=== PATIENT | male | born 1950 | race Caucasian/White ===

== ENCOUNTER 2016-05-25 19:49 | Emergency (ER) | payer MEDICARE, OTHER ==
[2016-05-25] MEDS ORDERED: Sodium Chloride 0.9% 10 ML Syringe FLUSH PRN (19:52)
[2016-05-25 20:57] VITALS: BP 136/86
[2016-05-25 21:00] LABS: CHLORIDE,CL 107 mmol/L (98-107); SODIUM,NA 143 mmol/L (136-145)
[2016-05-25] MEDS ORDERED: Azithromycin 250 MG Tab PO ONE (21:13)
[2016-05-25] MEDS ORDERED: predniSONE 20 MG Tab PO ONE (21:14)
--- NOTE | 2016-05-25 22:31 | ER ---
Date of Service: 05/25/2016 SUBJECTIVE: Efrain presents to the emergency room with complaints of left anterior upper chest pain. He states that he was sitting down and watching TV at the onset of the symptoms. He states that there was no radiation to his jaw, arms, neck or back. He states that he does have a history of coronary artery disease and does have 1 stent. He did not become diaphoretic with these symptoms. He states that he also has recently had a "cold" and does have a history of COPD. PAST MEDICAL HISTORY: 1. Coronary artery disease. 2. Dyslipidemia. 3. Recurrent pneumonia. 4. COPD. 5. Hypertension. MEDICATIONS: 1. Lipitor 10 mg at bedtime. 2. Aspirin 325 mg daily. 3. Metoprolol succinate 25 mg once every 24 hours. REVIEW OF SYSTEMS: General: Denies any fever or chills. HEENT: No sore throat, rhinorrhea, or congestion. Respiratory: No shortness breath. Cardiac: Denies any substernal chest pain. No jaw, arm, neck, or back pain. Again he does have left anterior upper respirophasic chest pain. He denies any hemoptysis. No productive cough. Respiratory: No shortness of breath. Gastrointestinal: No nausea, vomiting, or diarrhea. No melena, hematochezia, or hematemesis. : Denies any dysuria. Musculoskeletal: No myalgias or arthralgias. Neurologic: No fainting, blackouts, lightheadedness. PHYSICAL EXAMINATION: General: This is a 65-year-old male patient. No acute distress. Vital Signs: Temperature 37.3, pulse rate is 68, blood pressure is 138/87, respiratory rate 18, O2 saturations 96%. Skin: Warm, pink, and dry. HEENT: Head is normocephalic, atraumatic. Eyes, PERRLA. Extraocular movements are intact. Mouth, oral mucosa is moist. Lungs: Diminished with mild wheezing throughout. Heart: Regular rate and rhythm. Abdomen: Soft, nontender. There is no hepatosplenomegaly noted. There is no masses noted. Extremities: Without edema. Neurologic: He is alert and oriented. Answers all questions appropriately. DIAGNOSTIC DATA: A 12-lead EKG shows a right bundle-branch block, which was unchanged from previous. Two-view chest x-ray was obtained, there was no evidence of any acute infiltrate. Hematology: WBCs 6.2, hemoglobin is 15.0, platelets are 221. Coags; PT is 9.9, INR is 0.9. Sodium is 143, potassium is 4.1, chloride is 107, bicarb is 28, BUN is 7, creatinine 0.8. GFR is greater than 60. Glucose is 94, calcium is 8.9, corrected calcium is 8.6, total bilirubin is 0.5, AST is 12, ALT is 28, alkaline phosphatase is 54. CK is 57, CK-MB is 0.8. Troponin of 0.01. Total protein is 7.5, albumin is 4.3, TSH is 1.863. EMERGENCY ROOM COURSE: The patient had been given aspirin pre-hospital. He did not receive any nitroglycerin or other medication for his chest pain and it resolved prior to arrival of EMS and he had no further discomfort during his stay in the emergency room. He remained stable in my care in the emergency room. ASSESSMENT: 1. Atypical chest pain. 2. Probable chronic obstructive pulmonary disease exacerbation. PLAN: The patient was started on azithromycin 500 mg x1 and then 250 mg on days 2 through 5. We will start him on prednisone 40 mg daily for 5 days. Follow up in the clinic in 10 to 14 days. Refer to the emergency room, if he develops significant substernal chest pain, shortness of breath or other worrisome signs or symptoms. All questions were answered. MWK: 05/25/2016 21:41:51 MODL: 05/25/2016 22:25:24 /[id number]
== END 2016-05-25 21:25 | disposition home or self-care (01) ==
LOC: VM.ED 19:49
DX: R07.89 Other chest pain (principal); I25.10 Atherosclerotic heart disease of native coronary artery without angina pectoris; E78.5 Hyperlipidemia, unspecified; I10 Essential (primary) hypertension; J44.9 Chronic obstructive pulmonary disease, unspecified; Z79.899 Other long term (current) drug therapy
CPT/HCPCS: 71020; 80053; 82550; 82553; 84443; 84484; 85025; 85610; 86140; 93005; 99285; A9270; 36415; 99283-GF

== ENCOUNTER 2018-06-01 03:09 | Emergency (ER) | payer MEDICARE, OTHER ==
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
[2018-06-01] MEDS ORDERED: Nitroglycerin 0.4 MG Tab.SL SL ONE (03:23)
[2018-06-01 04:36] LABS: CHLORIDE,CL 107 mmol/L (98-107); SODIUM,NA 143 mmol/L (136-145)
[2018-06-01 04:37] LABS: ANION GAP 16.1 mmol/L (10-20)
[2018-06-01] MEDS ORDERED: Sodium Chloride 0.9% 10 ML Syringe FLUSH PRN (04:44)
[2018-06-01] MEDS ORDERED: Heparin Sodium 5,000 Units/ML Vial IVPUSH ONE (04:44)
[2018-06-01] MEDS ORDERED: Heparin Sodium/0.45% NaCl 25,000 UNITS/500 ML BAG IV SCH ×2 (04:45→05:07)
[2018-06-01 09:45] VITALS: BP 142/78
== END 2018-06-01 09:40 | disposition short-term general hospital (02) ==
LOC: VM.ED 03:09
DX: I21.4 Non-ST elevation (NSTEMI) myocardial infarction (principal); I10 Essential (primary) hypertension; I25.2 Old myocardial infarction; Z79.82 Long term (current) use of aspirin
CPT/HCPCS: 36415; 80053; 83735; 83880; 84100; 84484; 85025; 85610; 86140; 93005; 93010; 96365; 96366; 99284; 99285; J1644

== ENCOUNTER 2018-12-05 21:44 | Emergency (ER) | payer MEDICARE, OTHER ==
--- NOTE | 2018-12-05 22:01 | EDM.PDOC ---
ED HPI GENERAL MEDICAL PROBLEM - General Stated Complaint: CHEST PAIN Time Seen by Provider: 12/05/18 21:46 Source of Information: Reports: Patient, EMS, RN Notes Reviewed History Limitations: Reports: No Limitations - History of Present Illness INITIAL COMMENTS - FREE TEXT/NARRATIVE: Pt. presents to ER with complaints of intermittent L sided chest pain. Pt. states that he has been experiencing this intermittently throughout the day today. He states that the discomfort has been resolving in its own. He states that tonight, he developed the pain again. He took a sublingual nitroglycerine and states that the discomfort again resolved. EMS was summoned. Pt. has a history of CAD, and has had previous angioplasty and stenting. He states that he is no more short of breath than normal. Denies any shortness of breath. No recent coughing. Pt. denies any radiation into his jaw, arms, neck or back. It is located to the L of upper pectoral area. Pt. was seen in our ER in May of this year with L arm pain in our facility. He was diagnosed with NSTEMI at that time (trop I was elevated, there was no acute ST change). He was transferred to [place], underwent PTCA, and was found to have no abnormality at that time according to his discharge summary, but according to his cath report, he had the following: Left main artery: The segment is large. Angiography shows no disease. Left Anterior Descending Left anterior descending artery: The segment is large. Angiography shows luminal irregularites. First diagonal: The segment is moderately sized. There is a 60 % stenosis in the mid portion of the segment. Circumflex Circumflex artery: The segment is large. Mid circumflex: There is a 40 % in- stent restenosis. First obtuse marginal: The segment is moderately sized. Angiography shows no disease. Second obtuse marginal: The segment is small. Angiography shows no disease. Right Coronary Right coronary artery: The segment is large. Angiography shows diffuse disease. Proximal right coronary artery: There is an 80 % stenosis. This is a diffuse lesion. Mid right coronary artery: There is a 100 % stenosis. Right posterior descending artery: The segment is moderately sized. The vessel segment is supplied by collaterals. Since then, he has been on high-dose statin, beta-jhonathan, plavix, imdur and lisinopril. It does not appear that there was any intervention done at that time. Pt. states that with prior coronary events, he had L arm pain, and denies any previous chest pain. Onset: Today Onset Date: 12/05/18 Location: Reports: Chest Quality: Reports: Ache Associated Symptoms: Reports: Chest Pain. Denies: Cough, cough w sputum, Diaphoresis, Fever/Chills, Shortness of Breath Treatments WINDOWS ARCHITECT: Reports: Aspirin, IV/IO, Nitroglycerin - Related Data Allergies Allergy/AdvReac Type Severity Reaction Status Date / Time No Known Drug Allergies Allergy Other Verified 12/05/18 21:59 Home Meds: Home Meds Aspirin 325 mg PO DAILY 10/02/13 [History] Nitroglycerin 0.3 mg SL ASDIRECTED PRN 11/21/16 [History] Past Medical History HEENT History: Reports: Hard of Hearing, Impaired Vision Cardiovascular History: Reports: High Cholesterol, Hypertension, [place], Stents Other Cardiovascular History: x3 [place] Respiratory History: Reports: Bronchitis, Recurrent, Pneumonia, Recurrent - Past Surgical History Cardiovascular Surgical History: Reports: Coronary Artery Stent Social & Family History - Family History Family Medical History: Noncontributory Cardiac: Reports: Other (See Below) Other Cardiac Family History: Father of an NV Respiratory: Reports: None GI: Reports: None Musculoskeletal: Reports: None Neurological: Reports: None Psychiatric: Reports: None Endocrine/Metabolic: Reports: None Hematologic: Reports: None Immunologic: Reports: None Dermatologic: Reports: None Oncologic: Reports: Other (See Below) Other Oncologic Family History: sister from cancer, unsure of what kind - Caffeine Use Caffeine Use: Reports: Coffee Caffeine Use Comment: 1 pot of coffee per day ED ROS GENERAL - Review of Systems Review Of Systems: See Below Constitutional: Reports: No Symptoms. Denies: Fever, Chills, Weakness, Diaphoresis, Decreased Appetite HEENT: Reports: No Symptoms Respiratory: Reports: No Symptoms Cardiovascular: Reports: Chest Pain. Denies: Dyspnea on Exertion, Edema, Lightheadedness, Palpitations Endocrine: Reports: No Symptoms GI/Abdominal: Reports: No Symptoms : Reports: No Symptoms Musculoskeletal: Reports: No Symptoms Skin: Reports: No Symptoms Neurological: Reports: No Symptoms. Denies: Confusion, Dizziness, Numbness, Syncope, Tingling, Weakness Psychiatric: Reports: No Symptoms Hematologic/Lymphatic: Reports: No Symptoms Immunologic: Reports: No Symptoms ED EXAM, GENERAL - Physical Exam Exam: See Below Exam Limited By: No Limitations General Appearance: Alert, WD/WN, No Apparent Distress Eye Exam: Bilateral Eye: EOMI, PERRL Throat/Mouth: Normal Inspection, Normal Lips, Normal Teeth, Normal Gums, Normal Oropharynx, Normal Voice, No Airway Compromise Head: Atraumatic, Normocephalic Neck: Normal Inspection, Supple, Non-Tender, Full Range of Motion Respiratory/Chest: No Respiratory Distress, Lungs Clear, Normal Breath Sounds, No Accessory Muscle Use, Chest Non-Tender Cardiovascular: Normal Peripheral Pulses, Regular Rate, Rhythm, No Edema, No Gallop, No JVD, No Murmur, No Rub Peripheral Pulses: 4+: Radial (R) GI/Abdominal: Normal Bowel Sounds, Soft, Non-Tender, No Organomegaly, No Distention, No Abnormal Bruit, No Mass (Male) Exam: Deferred Rectal (Males) Exam: Deferred Back Exam: Normal Inspection, Full Range of Motion Extremities: Normal Inspection, Normal Range of Motion, Non-Tender, No Pedal Edema, Normal Capillary Refill Neurological: Alert, Oriented, CN II-XII Intact, No Motor/Sensory Deficits Psychiatric: Normal Affect, Normal Mood Skin Exam: Warm, Dry, Intact, Normal Color Lymphatic: No Adenopathy EKG INTERPRETATION Rhythm: NSR Mercer: Normal P-Wave: Present QRS: RBBB ST-T: Normal QT: Normal Comparison: Change From Previous EKG Course - Vital Signs Last Recorded V/S: Last Vital Signs Temp 36.8 C 12/05/18 22:16 Pulse 71 12/05/18 22:16 Resp 14 12/05/18 22:16 BP 156/82 H 12/05/18 22:16 Pulse Ox 98 12/05/18 22:16 - Orders/Labs/Meds Orders: Active Orders 24 hr Category Date Time Status EKG Documentation Completion [RC] STAT Care 12/05/18 21:51 Active Chest 1V Frontal [CR] Stat Exams 12/05/18 21:51 Taken CBC W/O DIFF,HEMOGRAM [HEME] Q3D Lab 12/06/18 07:00 Ordered CBC W/O DIFF,HEMOGRAM [HEME] Q3D Lab 12/09/18 07:00 Ordered CBC W/O DIFF,HEMOGRAM [HEME] Q3D Lab 12/12/18 07:00 Ordered CBC W/O DIFF,HEMOGRAM [HEME] Q3D Lab 12/15/18 07:00 Ordered CBC W/O DIFF,HEMOGRAM [HEME] Q3D Lab 12/18/18 07:00 Ordered CBC W/O DIFF,HEMOGRAM [HEME] Q3D Lab 12/21/18 07:00 Ordered CBC W/O DIFF,HEMOGRAM [HEME] Q3D Lab 12/24/18 07:00 Ordered Heparin Sodium/0.45% NaCl [Heparin 25,000 Units in 1/2 Med 12/05/18 23:00 Ordered NS 500 ML] 25,000 units in 500 ml IV TITRATE Medication Orders Heparin Sodium/Sodium Chloride (Heparin 25,000 Units In 1/2 Ns 500 Ml) 25,000 units in 500 mls @ 20 mls/hr IV TITRATE SANIYA; Protocol Labs: Laboratory Tests 12/05/18 12/05/18 12/05/18 Range/Units 21:55 21:55 21:55 WBC 7.2 (4.0-10.0) x10^3/uL RBC 4.64 (4.5-6.0) x10^6/uL Hgb 15.2 (14.0-18.0) g/dL Hct 43.7 (40.0-52.0) % MCV 94.2 H (78.0-93.0) fL MCH 32.8 H (26.0-32.0) pg MCHC 34.8 (32.0-36.0) g/dL RDW Coeff of [place] 13.7 (10.0-15.0) % Plt Count 185 (130-400) x10^3/uL Neut % (Auto) 73.8 (50.0-80.0) % Lymph % (Auto) 14.9 L (25.0-50.0) % [place] % (Auto) 7.4 (2.0-11.0) % Eos % (Auto) 3.8 (0.0-4.0) % Baso % (Auto) 0.1 L (0.2-1.2) % PT 10.3 (10.0-12.8) SEC INR 0.9 L (2.0-3.5) Sodium 145 (136-145) mmol/L Potassium 4.1 (3.5-5.1) mmol/L Chloride 106 (98-107) mmol/L Carbon Dioxide 27 (21-32) mmol/L Anion Gap 16.1 (10-20) mmol/L BUN 11 (7-18) mg/dL Creatinine 0.9 (0.70-1.30) mg/dL Est Cr Clr Drug Dosing 82.50 mL/min Estimated GFR (MDRD) > 60 Glucose 103 (74-106) mg/dL Calcium 8.6 (8.5-10.1) mg/dL Corrected Calcium 8.84 (8.5-10.1) mg/dL Phosphorus 3.5 (2.6-4.7) mg/dL Magnesium 1.9 (1.8-2.4) mg/dL Total Bilirubin 0.5 (0.2-1.0) mg/dL AST 17 (15-37) U/L ALT 35 (16-63) U/L Alkaline Phosphatase 58 (46-116) U/L Troponin I 0.109 H* (<=0.056) ng/mL C-Reactive Protein < 0.2 (<=0.9) mg/dL Total Protein 7.0 (6.4-8.2) g/dL Albumin 3.7 (3.4-5.0) g/dL Globulin 3.3 Albumin/Globulin Ratio 1.12 Meds: Medications Generic Name Dose Route Start Last Admin Trade Name Freq PRN Reason Stop Dose Admin Heparin Sodium/Sodium Chloride 25,000 units in 500 mls @ 20 mls/hr 12/05/18 23 :00 Heparin 25,000 Units In 1/2 Ns 500 Ml IV TITRATE SANIYA Protocol 1,000 UNITS/HR Discontinued Medications Generic Name Dose Route Start Last Admin Trade Name Freq PRN Reason Stop Dose Admin Heparin Sodium (Porcine) 4,000 units 12/05/18 22:46 Heparin Sodium IVPUSH 12/05/18 22:47 .BOLUS ONE - Re-Assessments/Exams Free Text/Narrative Re-Assessment/Exam: 12/05/18 22:52 Troponin positive at 0.109. Pt. was given heparin 4000U bolus and started on a heparin drip at 1000U/hr. He was pain free during his stay in ER. He only took 1 nitro prior to arrival or EMS. He was given aspirin 324mg PO by EMS. Departure - Departure Time of Disposition: 22:54 Disposition: DC/Tfer to Acute Hospital 02 Condition: Critical Clinical Impression: NSTEMI (non-ST elevated myocardial infarction), Acute myocardial infarction - Discharge Information Referrals: Lamar Moses MD [Primary Care Provider] - - Problem List Review Problem List Initiated/Reviewed/Updated: Yes - My Orders Last 24 Hours: My Active Orders 12/05/18 21:51 EKG Documentation Completion [RC] STAT Chest 1V Frontal [CR] Stat 12/05/18 23:00 Heparin Sodium/0.45% NaCl [Heparin 25,000 Units in 1/2 NS 500 ML] 25,000 units in 500 ml IV TITRATE 12/06/18 07:00 CBC W/O DIFF,HEMOGRAM [HEME] Q3D 12/09/18 07:00 CBC W/O DIFF,HEMOGRAM [HEME] Q3D 12/12/18 07:00 CBC W/O DIFF,HEMOGRAM [HEME] Q3D 12/15/18 07:00 CBC W/O DIFF,HEMOGRAM [HEME] Q3D 12/18/18 07:00 CBC W/O DIFF,HEMOGRAM [HEME] Q3D 12/21/18 07:00 CBC W/O DIFF,HEMOGRAM [HEME] Q3D 12/24/18 07:00 CBC W/O DIFF,HEMOGRAM [HEME] Q3D - Assessment/Plan Last 24 Hours: My Active Orders 12/05/18 21:51 EKG Documentation Completion [RC] STAT Chest 1V Frontal [CR] Stat 12/05/18 23:00 Heparin Sodium/0.45% NaCl [Heparin 25,000 Units in 1/2 NS 500 ML] 25,000 units in 500 ml IV TITRATE 12/06/18 07:00 CBC W/O DIFF,HEMOGRAM [HEME] Q3D 12/09/18 07:00 CBC W/O DIFF,HEMOGRAM [HEME] Q3D 12/12/18 07:00 CBC W/O DIFF,HEMOGRAM [HEME] Q3D 12/15/18 07:00 CBC W/O DIFF,HEMOGRAM [HEME] Q3D 12/18/18 07:00 CBC W/O DIFF,HEMOGRAM [HEME] Q3D 12/21/18 07:00 CBC W/O DIFF,HEMOGRAM [HEME] Q3D 12/24/18 07:00 CBC W/O DIFF,HEMOGRAM [HEME] Q3D Plan: Pt. will be transferred to [facility]. I spoke with Dr. Maynard. He accepts the patient in transfer. He was heparinized. He will be transferred via [facility] ground ambulance. Pt. family was notified. All questions were answered.
[2018-12-05 22:37] LABS: ANION GAP 16.1 mmol/L (10-20); CHLORIDE,CL 106 mmol/L (98-107); SODIUM,NA 145 mmol/L (136-145)
[2018-12-05] MEDS ORDERED: Heparin Sodium 5,000 Units/ML Vial IVPUSH ONE (22:46)
[2018-12-05] MEDS ORDERED: Heparin Sodium/0.45% NaCl 25,000 UNITS/500 ML BAG IV SCH (23:00)
--- NOTE | 2018-12-06 08:16 | CR ---
[id number] RAD/RAD Chest PA or AP 1V EXAM: SINGLE VIEW CHEST. INDICATION: CHEST PAIN COMPARISON: CORRELATION IS MADE WITH THE EXAM OF MAY 25, 2016 FINDINGS: The lungs are clear but hyperaerated The cardiomediastinal contour is stable IMPRESSION: QUESTION OF AIR TRAPPING Jr Gaming MD 12/06/18 0815 Thank you for allowing us to participate in the care of your patient.
[2018-12-06 09:33] VITALS: BP 139/83; PULSE 76
== END 2018-12-05 23:21 | disposition short-term general hospital (02) ==
LOC: VM.ED 21:44
DX: I21.4 Non-ST elevation (NSTEMI) myocardial infarction (principal); I10 Essential (primary) hypertension; Z79.82 Long term (current) use of aspirin
CPT/HCPCS: 36415; 71045; 80053; 83735; 84100; 84484; 85025; 85610; 86140; 93005; 96365; 99285; J1644; 93010; 99284-GF

== ENCOUNTER 2021-11-15 02:52 | Inpatient (IN) | payer MEDICARE, OTHER ==
[2021-11-15 04:09] LABS: ANION GAP 16.1 mmol/L (5-15)
[2021-11-15] MEDS ORDERED: Nitroglycerin 0.4 MG Tab.SL SL PRN (05:00)
[2021-11-15] MEDS ORDERED: Albuterol HFA 18 Gm Inhaler INH PRN (05:23)
[2021-11-15] MEDS: Heparin Sodium 5,000 Units/ML Vial SUBCUT SCH ×3 (05:46→20:48)
[2021-11-15] MEDS: Albuterol/Ipratropium 3.0-0.5 MG/3 ML Neb Soln INH SCH ×3 (06:29→18:00)
[2021-11-15] MEDS: Aspirin 81 MG Tab.EC PO SCH (08:33)
[2021-11-15] MEDS: Magnesium Chloride 64 MG Tab.ER PO SCH (08:33)
[2021-11-15] MEDS: Spironolactone 25 MG Tab PO SCH (08:33)
[2021-11-15] MEDS: atorvaSTATin 40 MG Tab PO SCH (08:34)
[2021-11-15] MEDS: Isosorbide Mononitrate 30 MG Tab.ER PO SCH (08:35)
[2021-11-15] MEDS: Lisinopril 20 MG Tab PO SCH (08:35)
[2021-11-15] MEDS: Clopidogrel 75 MG Tab PO SCH (08:35)
[2021-11-15] MEDS: Metoprolol Succinate 50 MG Tab.ER PO SCH (08:36)
[2021-11-15] MEDS: Calcium Carbonate/Vitamin D3 1250 MG-5 MCG Tab PO SCH (08:36)
[2021-11-15] MEDS ORDERED: Non-Formulary Medication 1 Each (Escitalopram [Lexapro] 10 MG Tablet) PO SCH (09:00)
[2021-11-15] MEDS ORDERED: Non-Formulary Medication 1 Each (Aspirin [Aspirin] 325 MG Tablet) PO SCH (09:00)
[2021-11-15] MEDS ORDERED: Non-Formulary Medication 1 Each (Calcium Carbonate [Calcium Carbonate] 500 MG Tablet) PO SCH (09:00)
[2021-11-15] MEDS ORDERED: Budesonide 0.5 MG/2 ML Neb Susp INH SCH (09:00)
[2021-11-15] MEDS ORDERED: Isosorbide Mononitrate 30 MG Tab.ER PO SCH (09:00)
[2021-11-15] MEDS: Budesonide 0.5 MG/2 ML Neb Susp INH SCH (17:59)
[2021-11-16] MEDS: Albuterol/Ipratropium 3.0-0.5 MG/3 ML Neb Soln INH SCH ×2 (01:42→06:24)
[2021-11-16] MEDS: Heparin Sodium 5,000 Units/ML Vial SUBCUT SCH (05:51)
[2021-11-16 05:55] VITALS: BP 124/76
[2021-11-16] MEDS: Budesonide 0.5 MG/2 ML Neb Susp INH SCH (06:24)
[2021-11-16 06:43] LABS: ANION GAP 12.9 mmol/L (5-15)
[2021-11-16] MEDS: Calcium Carbonate/Vitamin D3 1250 MG-5 MCG Tab PO SCH (08:01)
[2021-11-16] MEDS: Isosorbide Mononitrate 30 MG Tab.ER PO SCH (08:01)
[2021-11-16] MEDS: Lisinopril 20 MG Tab PO SCH (08:01)
[2021-11-16] MEDS: Magnesium Chloride 64 MG Tab.ER PO SCH (08:03)
[2021-11-16] MEDS: atorvaSTATin 40 MG Tab PO SCH (08:03)
[2021-11-16 08:04] VITALS: PULSE 67
[2021-11-16] MEDS: Metoprolol Succinate 50 MG Tab.ER PO SCH (08:04)
[2021-11-16] MEDS: Spironolactone 25 MG Tab PO SCH (08:04)
[2021-11-16] MEDS: Aspirin 81 MG Tab.EC PO SCH (08:04)
[2021-11-16] MEDS: Clopidogrel 75 MG Tab PO SCH (08:05)
[2021-11-16] MEDS ORDERED: Citalopram 10 MG Tab PO SCH (09:15)
== END 2021-11-16 09:40 | disposition home or self-care (01) | DRG 281 ==
LOC: VM.ED 02:52 → VM.MS 04:13 → UNDODISIN 11-16 09:40
PROVIDERS: ADMIT Family Medicine; ATTEND Family Medicine
DX: I21.4 Non-ST elevation (NSTEMI) myocardial infarction (principal); I50.42 Chronic combined systolic (congestive) and diastolic (congestive) heart failure; I10 Essential (primary) hypertension; E78.00 Pure hypercholesterolemia, unspecified; Z79.02 Long term (current) use of antithrombotics/antiplatelets; I25.10 Atherosclerotic heart disease of native coronary artery without angina pectoris; Z66 Do not resuscitate; J44.9 Chronic obstructive pulmonary disease, unspecified; I11.0 Hypertensive heart disease with heart failure; H91.90 Unspecified hearing loss, unspecified ear; F32.A Depression, unspecified; M72.0 Palmar fascial fibromatosis [Dupuytren]; E78.5 Hyperlipidemia, unspecified; I05.9 Rheumatic mitral valve disease, unspecified; Z98.890 Other specified postprocedural states; Z87.891 Personal history of nicotine dependence; Z79.899 Other long term (current) drug therapy; Z79.82 Long term (current) use of aspirin; Z95.5 Presence of coronary angioplasty implant and graft
CPT/HCPCS: 36415; 71045; 80053; 82550; 83735; 83880; 84484; 85025; 85610; 93005; 94640; 99284; 99285; A9270-GY; J1644; J7620-GY